=== PATIENT | female | born 1980 | race Caucasian/White ===

== ENCOUNTER 2019-07-05 16:10 | Outpatient (CLI) | payer OTHER ==
--- NOTE | 2019-07-06 08:04 | RAD ---
PA AND LATERAL VIEWS OF THE CHEST: 07/05/19 HISTORY: History of tuberculosis. FINDINGS: The cardiomediastinal silhouette is normal and the lungs are clear. The bony thorax is normal. IMPRESSION: Normal exam. No radiographic evidence of active pulmonary tuberculosis. POS: OFF
== END 2019-07-05 16:11 | disposition home or self-care (01) ==
LOC: BURRAD 16:10
PROVIDERS: ATTEND Nurse Practitioner Family
DX: Z86.11 Personal history of tuberculosis (principal)
CPT/HCPCS: 71046